=== PATIENT | male | born 1970 | race Caucasian/White ===

== ENCOUNTER 2020-09-14 18:23 | Emergency (ER) | payer OTHER ==
[~2020-09-14] VITALS: Ht 182.9 cm; Wt 148.8 kg
--- NOTE | 2020-09-14 18:45 | NUR ---
[id number] C/O L KNEE PAIN SINCE LAST NIGHT TRYING TO GET OUT BED. RATES LEFT KNEE PAIN 09/27. DENIES NUMBNESS/TINGLING IN THE EXTREMITY. WILL CONTINUE TO MONITOR THE PATIENT.
[2020-09-14] MEDS ORDERED: PRED50TA PO (19:46)
[2020-09-14] MEDS ORDERED: IBUP-1957 PO (19:46)
--- NOTE | 2020-09-14 20:09 | NUR ---
Patient discharged to home in stable condition. Written and verbal after care instructions given. Patient verbalizes understanding of instruction.
[2020-09-14 20:19] VITALS: BP 126/76
== END 2020-09-14 20:20 | disposition home or self-care (01) ==
LOC: ER 19:12
DX: M70.52 Other bursitis of knee, left knee (principal); G40.909 Epilepsy, unspecified, not intractable, without status epilepticus; I10 Essential (primary) hypertension; Z79.899 Other long term (current) drug therapy; Y93.89 Activity, other specified
CPT/HCPCS: 73564-TC